=== PATIENT | male | born 1980 | race Caucasian/White ===

== ENCOUNTER 2021-01-16 19:02 | Emergency (ER) | payer SELFPAY ==
[2021-01-16] VITALS (10 sets, daily range): BP systolic 120–136; BP diastolic 73–80; PULSE 68–89; RESP 16–18; TEMP 36.4; O2SAT 95–99; BMI 38.0
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
[2021-01-16] MEDS: tetanus-dipt-pertussis 0.5 mL SDV IM (19:34)
[2021-01-16 20:06] LABS: Basophils # 0.1 10^3/uL (0.0-0.1); Basophils % 0.5 %; Eosinophils # 0.1 10^3/uL (0.0-0.8); Eosinophils % 0.7 %; Hematocrit 48.3 % (42.0-52.0); Hemoglobin 15.9 g/dL (11.7-16.6); Lymphocytes % 13.8 %; Mean Corpuscular HGB Conc 32.9 g/dL (30.0-36.0); Mean Corpuscular Hemoglobin 28.5 pg (28.0-34.0); Mean Corpuscular Volume 86.7 fl (80-94); Mean Platelet Volume 8.8 fL (7.4-10.4); Monocytes # 0.7 10^3/uL (0.2-0.9); Neutrophils # 11.57 10^3/uL (1.8-7.7); Neutrophils % 79.5 %; Nucleated Red Blood Cells % 0 %; Platelet Count 295 10^3/cmm (130-400); Red Blood Count 5.57 10^6/uL (4.1-5.3); Red Cell Distribution Width 12.1 % (12.1-15.1); White Blood Count 14.5 10^3/uL (4.0-10.0)
[2021-01-16 20:17] LABS: INR 0.96 (0.8-1.2)
[2021-01-16 20:23] LABS: Alanine Aminotransferase 43 U/L (0-41); Albumin Level 4.4 g/dL (3.5-5.2); Alkaline Phosphatase 61 IU/L (40-130); Anion Gap 14.6 (5-19); Aspartate Amino Transferase 32 U/L (0-40); Blood Urea Nitrogen 12 mg/dL (6-20); Calcium 9.1 mg/dL (8.5-10.5); Carbon Dioxide 28 mmol/L (22-29); Chloride 105 mmol/L (98-107); Globulin 2.3 g/dL (1.3-4.6); Glomerular Filtration Rate 94.4 mL/min (90-130); Glucose 110 mg/dL (65-115); Osmolality Calculated 296 mOsm/kg (285-295); Potassium 4.6 mmol/L (3.5-5.1); Sodium 143 mmol/L (136-145); Total Bilirubin 0.4 mg/dL (0.15-1.2); Total Protein 6.7 g/dL (6.6-8.7)
== END 2021-01-16 20:49 | disposition short-term general hospital (02) ==
PROVIDERS: Emergency Provider Emergency Medicine
DX: S06.369A Traumatic hemorrhage of cerebrum, unspecified, with loss of consciousness of unspecified duration, initial encounter (principal); S01.01XA Laceration without foreign body of scalp, initial encounter; V86.49XA Person injured while boarding or alighting from other special all-terrain or other off-road motor vehicle, initial encounter
CPT/HCPCS: 70450; 73080; 73502; 80053; 85025; 85610; 90471; 90715; 99285

== ENCOUNTER 2024-02-16 19:07 | Emergency (ER) | payer OTHER, SELFPAY ==
[2024-02-16 19:14] VITALS: TEMP 37.7; BMI 35.2
[2024-02-16] MEDS: lactated ringers 1,000 ML 200 ML IV (19:24)
[2024-02-16 19:30] VITALS: BP 136/87; PULSE 125; RESP 12; O2SAT 95
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
[2024-02-16 20:17] VITALS: BP 138/81; PULSE 120; RESP 17; O2SAT 95
[2024-02-16] MEDS: tetanus-dipt-pertussis 0.5 mL SDV IM (20:17)
[2024-02-16] MEDS: neomycin-poly-bacitracin oint 0.9 gm Pkt 1 APPLIC TOPICAL (21:05)
[2024-02-16 21:16] VITALS: BP 123/76; PULSE 116; RESP 18; O2SAT 96
== END 2024-02-16 21:10 | disposition home or self-care (01) ==
PROVIDERS: Emergency Provider Emergency Medicine
DX: T23.192A Burn of first degree of multiple sites of left wrist and hand, initial encounter (principal); T23.191A Burn of first degree of multiple sites of right wrist and hand, initial encounter; X08.8XXA Exposure to other specified smoke, fire and flames, initial encounter
CPT/HCPCS: 90471; 90715; 96360; 99284; A6446; J7120